=== PATIENT | male | born 1985 | race Caucasian/White ===

== ENCOUNTER 2018-06-11 21:15 | Inpatient (IN) | payer OTHER ==
[~2018-06-11] VITALS: Ht 170.2 cm; Wt 94.4 kg
[2018-06-11 21:21] VITALS: Ht 170.2 cm; Wt 94.4 kg
[2018-06-11 23:53] LABS: BASOPHIL % 0.5 % (0-2); PLATELET COUNT 206 x10^3mcL (130-400)
[2018-06-11 23:54] LABS: RED CELL DISTRIBUTION WIDTH 14.9 % (11.5-14.5)
[2018-06-12 00:39] LABS: CARBON DIOXIDE 24.9 mmol/L (21-32); CHLORIDE SERUM 106 mmol/L (98-107); CREATININE SERUM 0.8 mg/dL (0.7-1.3); GFR1 > 60 mL/min; GLUCOSE SERUM 122 mg/dL (74-106); POTASSIUM SERUM 4.1 mmol/L (3.5-5.1); SODIUM SERUM 139 mmol/L (136-145)
[2018-06-12 00:44] LABS: ALBUMIN 3.5 g/dL (3.4-5.0); ALKALINE PHOSPHATASE 191 U/L (46-116); ALT/SGPT 32 U/L (16-63); AST/SGOT 19 U/L (15-37); BILIRUBIN TOTAL 0.8 mg/dL (0.20-1.00); TOTAL PROTEIN, SERUM 7.7 g/dL (6.4-8.2)
[2018-06-12 04:29] VITALS: BP 145/82
[2018-06-12 07:40] VITALS: BP 119/71
[2018-06-12 11:41] VITALS: BP 143/85
== END 2018-06-12 12:15 | disposition home or self-care (01) | DRG 153 ==
LOC: ED 21:15 → IC 06-12 03:33
PROVIDERS: Emergency Medicine
DX: J02.9 Acute pharyngitis, unspecified (principal)
CPT/HCPCS: J0456; J0696; J1100; J2920; J3490; Q9967